=== PATIENT | male | born 1970 | race Hispanic/Latino ===

== ENCOUNTER 2018-12-13 07:38 | Day surgery (SDC) | payer BC ==
[2018-12-13] MEDS ORDERED: NACL 0.9% 1000 ML 1,000 ML IV SCH (09:00)
--- NOTE | 2018-12-13 09:07 | Anesthesia Day of Surgery ---
Anesthesia Day of Surgery - Day of Surgery Patient Examined: Yes Patient H&P Reviewed: Yes Patient is NPO: Yes
--- NOTE | 2018-12-13 09:07 | Anesthesia Consultation ---
Anesthesia Consult and Med Hx Date of service: 12/13/18 - Airway Anesthetic Teeth Evaluation: Good ROM Head & Neck: Adequate Mental/Hyoid Distance: Inadequate Intubation Access Assessment: Probably Good - Pre-Operative Health Status ASA Pre-Surgery Classification: ASA2 Proposed Anesthetic Plan: MAC - Pulmonary Hx Smoking: Yes (tobaco) Hx Sleep Apnea: Yes - Cardiovascular System Hx Hypertension: Yes Hx Cardia Arrhythmia: No - Central Nervous System Hx Neuromuscular Disorder: No - Endocrine Hx Renal Disease: No - Other Systems Hx Alcohol Use: No Hx Substance Use: No
[2018-12-13] MEDS ORDERED: DIPRIVAN 10 MG/ML IV ONE ×3 (09:15)
[2018-12-13] MEDS ORDERED: SUBLIMAZE ONE (09:25)
--- NOTE | 2018-12-13 10:08 | Short Stay Summary ---
Short Stay Documentation Date of service: 12/13/18 Narrative H&P: The patient present for EGD due to chronic GERD and exclusion of Sargent;s and for screening colonoscopy due to FH of colon cancer. No prior colonoscopy. - History Past Medical History: GERD, hypertension Past Surgical History: No surgical history - Allergies and Medications Current Medications: Allergies No Known Allergies Allergy (Verified 12/13/18 08:53) Home Medications Medication Instructions Recorded Confirmed Last Taken Type Metoprolol 50 mg PO DAILY 12/13/18 12/13/18 12/12/18 History Prilosec 1 tab PO DAILY 12/13/18 12/13/18 12/11/18 History Active Medications Sodium Chloride (Nacl 0.9% 1000 Ml) 1,000 mls @ 50 mls/hr IV DIRECT DUGLAS Last Admin: 12/13/18 09:28 Dose: 50 mls/hr Documented by: - Physical exam General appearance: no acute distress, well-nourished Integumentary: no rash, no growths, no abnormal pigmentation HEENT: Atraumatic, PERRLA, EOMI, Mucous membr. moist/pink Lungs: Clear to auscultation, Normal air movement Breasts: deferred Heart: Regular rate, Normal S1, Normal S2, No murmurs, Murmur, Gallops Gastrointestinal: normal, normoactive bowel sounds, hypoactive bowel sounds, no tenderness, no distended, no masses, no guarding, no organomegaly, no hepatomegaly, no splenomegaly, no obese Male Genitourinary: deferred Rectal Exam: normal exam-external/orifice, no mass Extremities: no ischemia, pulses intact, pulses symmetrical, No edema, normal temperature, normal color, Full ROM Neurological: Normal gait, Normal speech, Strength at 5/5 X4 ext, Normal tone, Sensation intact, Cranial nerves 3-12 NL - Brief post op/procedure progress note Date of procedure: 12/13/18 Procedure: see dictated reports Findings: see dictated reports. Estimated blood loss: none Pathology: list (biopsies of gastric body polyp and distal esophagus) Specimen disposition: to lab Condition: stable - Disposition Condition at discharge: Good Disposition: DC- TO HOME OR SELFCARE - Discharge Diagnoses (1) GERD (gastroesophageal reflux disease) Status: Acute (2) Family history of colon cancer Status: Acute Short Stay Discharge Plan Activity: other (No driving for 24 hours) Weight Bearing Status: Full Weight Bearing Diet: regular Follow up with: VIPUL ORTEGA MD [Primary Care Provider] - 7 Days
--- NOTE | 2018-12-13 10:13 | Operative Report ---
Operative Report Operative Report: Date of procedure: 12/13/2018 Procedure: Esophagogastroduodenoscopy with biopsies of the mid gastric polyp. Biopsies of the distal esophagus. Preprocedure diagnosis: GERD, rule out Sargent's Post procedure diagnosis: 1 cm polyp on a stalk in the mid stomach. Distal esophagitis, possibly Sargent's. Endoscopist: Dr. Hernandez Anesthesia: Monitored anesthesia care per anesthesia department Medications: Propofol per anesthesia Estimated blood loss: 0 After careful discussion of the nature and purpose of the procedure as well as details the technique risks benefits and alternatives consent was obtained. The patient was placed in the left lateral decubitus position and medicated per anesthesia. The tip of the Roomster EQ 570 video scope was passed per orum under direct vision into the esophagus and advanced into the stomach and descending duodenum. The descending duodenum the duodenal bulb and pylorus were symmetrical and normal. The scope was withdrawn into the stomach and the stomach then gently insufflated with air. The antrum was normal. The stomach was further insufflated and the scope was then retroflexed and partially withdrawn. The cardia and fundus are normal. It was a 1 cm polyp on a stalk present in the mid stomach body on the greater curvature. Biopsies of the polyp were obtained. The stomach was easily distensible.The scope was then withdrawn in the forward position. The esophagogastric junction was at40 cm. There were 2 tongues of erythema which appeared to be inflammation endoscopically in the distal esophagus both of which are approximately 1 cm in length. Biopsies were taken in the distal esophagus in this area. The esophageal body was otherwise normal throughout. The procedure was was well tolerated and the patient was observed in recovery. Impressions: Distal esophagitis, rule out Sargent's. Mid stomach polyp. Rule out a neoplastic polyp. Plan: Await pathology. 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 Electronically signed: Delon Hernandez MD
--- NOTE | 2018-12-13 10:14 | Operative Report ---
Operative Report Operative Report: Date of procedure: 12/13/2018 Preprocedure diagnosis:, Family history of colon cancer Post procedure diagnosis: Normal study Procedure: Colonoscopy to the cecum Endoscopist: Dr. Hernandez Anesthesia: Monitored anesthesia care per anesthesia department Estimated blood loss: 0 Medications: Monitored anesthesia care. See separate report by anesthesia for details. After careful discussion of the nature and purpose of the procedure as well as details of the technique risks benefits and alternatives the patient gave consent. Please see recent history and physical from the office. The patient was placed in the left lateral decubitus position and medicated per anesthesia. A rectal exam was performed sphincter tone was normal there were no masses palpable. The Vixarn 570 scope was passed transanally and advanced under continuous direct vision without difficulty to the cecum. The colon was well prepared. The cecum was normal. The ascending colon was normal and on forward and retroflexed views. The transverse colon, descending colon, and sigmoid colon were normal. The rectum was normal on forward and retroflexed views. The procedure was well-tolerated overall and the patient was observed in recovery. Conclusions: Normal colonoscopy to the cecum. Plan: Repeat colonoscopy in 5 years. Signed electronically: Delon Hernandez M.D.
[2018-12-13 10:40] VITALS: BP 97/51
--- NOTE | 2018-12-13 11:18 | Post Anesthesia Evaluation ---
- Post Anesthesia Evaluation Patient Participated: Yes Airway Patent: Yes Stable Respiratory Function: Yes Nausea/Vomiting: No Temp > 96.8F: Yes Pain Manageable: Yes Adequeate Hydration: Yes Anesthesia Complications: No Block Receding Appropriately: Not Applicable Patient on Ventilator: No
== END 2018-12-13 07:39 | disposition home or self-care (01) ==
LOC: GIO 07:38
PROVIDERS: ATTEND Internal Medicine Gastroenterology
DX: Z12.11 Encounter for screening for malignant neoplasm of colon (principal); K21.0 Gastro-esophageal reflux disease with esophagitis; K31.7 Polyp of stomach and duodenum; F17.210 Nicotine dependence, cigarettes, uncomplicated; I10 Essential (primary) hypertension; G47.30 Sleep apnea, unspecified; Z98.890 Other specified postprocedural states; Z80.0 Family history of malignant neoplasm of digestive organs
CPT/HCPCS: 43239; 45378; 88305; 88342; J2704; J3010; J7030

== ENCOUNTER 2020-05-16 07:07 | Day surgery (SDC) | payer BC ==
[~2020-05-16 07:07] MED LIST: ceFAZolin/Water 2 GM/20 ML 2 GM/20 ML SYRINGE IV NR
[2020-05-16] MEDS ORDERED: LACTATED RINGERS 1,000 ML ONE (07:41)
[2020-05-16] MEDS ORDERED: MIDAZOLAM 5 MG/5 ML INJ MDV IV SCH (07:50)
[2020-05-16] MEDS ORDERED: BUPIVACAINE/PF (0.25%) 2.5 MG/ML 30 ML VIAL INFILTRATI ONE (08:22)
[2020-05-16] MEDS ORDERED: LIDOCAINE (1%) 10 MG/1 ML VIAL 20 ML MDV ONE (08:22)
[2020-05-16] MEDS ORDERED: HYDROmorphone 1 MG/1 ML INJ ONE (08:42)
[2020-05-16] MEDS ORDERED: propofoL 200 MG/20 ML VIAL IV ONE (08:42)
[2020-05-16] MEDS ORDERED: ACETAMINOPHEN 500 MG TAB PO ONE (08:45)
[2020-05-16] MEDS ORDERED: HYDROmorphone 1 MG/1 ML INJ IV PRN ×2 (08:45)
[2020-05-16] MEDS ORDERED: MAGNESIUM OXIDE 400 MG TAB PO ONE (08:45)
[2020-05-16] MEDS ORDERED: ONDANSETRON 4 MG/2 ML INJ IV PRN (08:45)
[2020-05-16] MEDS ORDERED: BUPIVACAINE/PF (0.5%) 5 MG/1 ML 30 ML VIAL INFILTRATI ONE (08:46)
--- NOTE | 2020-05-16 08:46 | Anesthesia Day of Surgery ---
Anesthesia Day of Surgery - Day of Surgery Patient Examined: Yes Patient H&P Reviewed: Yes Patient is NPO: Yes Beta Blockers: Yes
[2020-05-16] MEDS ORDERED: ACETAMINOPHEN 500 MG TAB ONE (08:47)
--- NOTE | 2020-05-16 08:47 | Anesthesia Consultation ---
Anesthesia Consult and Med Hx Date of service: 05/16/20 - Airway Anesthetic Teeth Evaluation: Good ROM Head & Neck: Adequate Mental/Hyoid Distance: Adequate Mallampati Class: Class III Intubation Access Assessment: Probably Good - Pre-Operative Health Status ASA Pre-Surgery Classification: ASA3 Proposed Anesthetic Plan: General Nerve Block: TAP - Pulmonary Hx Sleep Apnea: Yes (+2FS) - Cardiovascular System Hx Hypertension: Yes ([id number]) Hx Cardia Arrhythmia: No - Central Nervous System Hx Neuromuscular Disorder: No Hx Psychiatric Problems: Yes - Gastrointestinal Hx Gastroesophageal Reflux Disease: Yes - Endocrine Hx Renal Disease: No - Other Systems Hx Alcohol Use: Yes Hx Substance Use: No Hx Cancer: No Hx Obesity: Yes - Additional Comments Anesthesia Medical History Comments: COVID NEGATIVE
[2020-05-16] MEDS ORDERED: fentaNYL 100 MCG/2 ML INJ ONE (08:48)
[2020-05-16] MEDS ORDERED: MIDAZOLAM 2 MG/2 ML INJ ONE (08:48)
[2020-05-16] MEDS ORDERED: CELECOXIB 200 MG CAP PO NR (09:00)
[2020-05-16] MEDS ORDERED: LACTATED RINGERS 1,000 ML IV SCH (09:00)
[2020-05-16] MEDS ORDERED: ROCURONIUM 50 MG/5 ML INJ IV ONE (09:23)
[2020-05-16] MEDS ORDERED: SODIUM CHLORIDE 0.9% IRR 1,500 ML BOTTLE IR ONE (10:14)
[2020-05-16] MEDS ORDERED: GLYCOPYRROLATE 0.4 MG/2 ML INJ ONE (10:16)
[2020-05-16] MEDS ORDERED: NEOSTIGMINE 10MG/10 ML INJ MDV ONE (10:16)
[2020-05-16] MEDS ORDERED: LIDOCAINE MPF (2%) 20 MG/1 ML VIAL 5 ML ONE (10:16)
[2020-05-16] MEDS ORDERED: ONDANSETRON 4 MG/2 ML INJ ONE (10:16)
--- NOTE | 2020-05-16 10:35 | Short Stay Summary ---
Short Stay Documentation Date of service: 05/16/20 - History Principal diagnosis: incarcerated umbilical hernia H&P: obtained from office - Allergies and Medications Current Medications: Allergies No Known Allergies Allergy (Verified 05/08/20 10:42) Home Medications Medication Instructions Recorded Confirmed Last Taken Type Metoprolol 50 mg PO DAILY 12/13/18 05/16/20 05/16/20 05:00 History Prilosec 1 tab PO DAILY 12/13/18 05/16/20 05/16/20 05:00 History Active Medications Hydromorphone HCl (Dilaudid) 0.25 mg IV Q10MIN PRN PRN Reason: Pain, Moderate (4-6) Hydromorphone HCl (Dilaudid) 0.5 mg IV Q10MIN PRN PRN Reason: Pain , Severe (7-10) Cefazolin Sodium (Ancef/Sterile Water 2 Gm/20 Ml) 2 gm in 20 mls @ 80 mls/hr IV PREOP NR Stop: 05/16/20 21:00 Lactated Ringer's (Lactated Ringers) 1,000 mls @ 125 mls/hr IV DIRECT DUGLAS Last Admin: 05/16/20 08:10 Dose: 125 mls/hr Documented by: Midazolam HCl (Versed) 2 mg IV PREOP DUGLAS Stop: 05/16/20 23:00 Ondansetron HCl (Zofran) 4 mg IV ONCE PRN PRN Reason: Nausea And Vomiting - Brief post op/procedure progress note Date of procedure: 05/16/20 Pre-op diagnosis: incarcerated umbilical hernia Post-op diagnosis: same Procedure: open umbilical hernia repair with mesh Anesthesia: GETA, other (block) Findings: <1cm fascial defect containing incarcerated preperitoneal fat. Surgeon: LAURO FANG Estimated blood loss: minimal Pathology: none Specimen disposition: to lab Condition: stable - Hospital course Hospital course: Pt observed in PACU and discharged to home in stable condition when criteria met - Disposition Condition at discharge: Good Disposition: DC-01 TO HOME OR SELFCARE Short Stay Discharge Plan Activity: other (no heavy lifting) Diet: regular Wound: per your surgeon's advice Additional Instructions: SEE PRINTED DISCHARGE INSTRUCTIONS Follow up with: PRIMARY CARE,MD [Primary Care Provider] - 7 Days LAURO FANG DO [Staff Physician] - 14 Days Prescriptions: Ibuprofen [Motrin 800 MG tab] 800 mg PO Q8HR #30 tablet HYDROcodone/APAP 10-325 [[place] 10/325] 1 each PO Q6HR PRN #15 tablet PRN Reason: Pain , Severe (7-10)
--- NOTE | 2020-05-16 10:46 | Progress Note ---
Regional Anesthesia Block - Regional Anesthesia Block Performed By:: MITCHELL GUIDO Procedure: Marcello Tap Block with Ultrasound Pt Id, consent, time out; performed. Pt on monitor, VSS stable, sedation given per pre-op RN. Sterile prep and drape. Left side Landmarks Identified with ultrasound. 3cc 1% lido skin wheel. Needle advance in plane, 15cc .25% bupivacaine with 15 m ns injected intimately with negatives aspiration. Right side Landmarks Identified with ultrasound. 3cc 1% lido skin wheel. Needle advance in plane, 15cc .25% bupivacaine with 15 m ns injected intimately with negatives aspiration Pt tolerated procedure will, VSS stable. Right side Landmarks Identified with ultrasound. 3cc 1% lido skin wheel. Needle advance in plane, 15cc .25% bupivacaine injected intimately with negatives aspiration. Pt tolerated procedure will, VSS stable.
[2020-05-16] MEDS ORDERED: HYDROcodone/ACETAMINOPHEN 10-325MG TAB PO PRN ×2 (10:57→11:00)
[2020-05-16] MEDS ORDERED: fentaNYL 250 MCG/5 ML INJ IV SCH (11:00)
[2020-05-16 11:47] VITALS: BP 113/74
--- NOTE | 2020-05-16 12:44 | Post Anesthesia Evaluation ---
- Post Anesthesia Evaluation Patient Participated: Yes Airway Patent: Yes Stable Respiratory Function: Yes Nausea/Vomiting: No Temp > 96.8F: Yes Pain Manageable: Yes Adequeate Hydration: Yes Anesthesia Complications: No Block Receding Appropriately: Yes Patient on Ventilator: No
--- NOTE | 2020-05-17 10:55 | Operative Report ---
Operative Report Operative Report: Date of procedure: 05/16/20 Pre-op diagnosis: incarcerated umbilical hernia Post-op diagnosis: same Procedure: open umbilical hernia repair with mesh Anesthesia: GETA, other (block) Findings: <1cm fascial defect containing incarcerated preperitoneal fat. Surgeon: LAURO FANG Estimated blood loss: minimal Pathology: none Specimen disposition: to lab Condition: stable - Hospital course Hospital course: Pt observed in PACU and discharged to home in stable condition when criteria met HPI indication: Patient is a 50-year-old male who presented to the surgery clinic with an umbilical hernia. The patient was having more discomfort in the area and elected to have this fixed. All risk, benefits, alternatives to surgery discussed with patient questions answered. Consent was obtained. Procedure in detail: Patient was identified in the preoperative area, taken back to the operating room and placed on the operating room table in supine position. After anesthesia was induced the abdomen was prepped and draped in usual sterile fashion timeout performed. The patient had already received a regional block by anesthesia. An inverted semilunar incision was made at the superior aspect of the umbilicus using a 15 blade. Dissection was carried down through skin and subcutaneous tissue using Bovie electrocautery until the hernia was encountered. The hernia sac and its contents were circumferentially dissected free from the surrounding tissue using a hemostat and electrocautery. The fascia was identified and freed of overlying tissue circumferentially. The fascial defect was less than 1 cm containing greater than 3 cm of preperitoneal fat which was incarcerated in the hernia. The fascial defect was very slightly enlarged and the preperitoneal fat was able to be reduced. The preperitoneal space was bluntly dissected in order to make space for insertion of mesh. Once enough space was created a [address] mesh was inserted into the space and was ensured to be expanded completely and laying flat. This was sutured in place using 2-0 Prolene suture in 2 locations. The tabs were cut flush with the fascia. The subcutaneous tissue was irrigated and hemostasis was carefully ensured. The lumbar umbilicus was tacked down to the fascia using a 3-0 Vicryl interrupted stitch. The deep dermal layer was closed using 3-0 Vicryl interrupted sutures. The skin was approximated using 4-0 Monocryl subcuticular running stitch and skin glue. After the glue was dry a 4 x 4 fluff gauze was placed in the umbilicus and secured with a Tegaderm. At the end of the case, all sponge, instrument, sharp counts were correct x2. The patient was awoken from anesthesia extubated and taken to PACU in stable condition.
== END 2020-05-16 07:08 | disposition home or self-care (01) ==
LOC: OR 07:07
PROVIDERS: ATTEND Surgery
DX: K42.0 Umbilical hernia with obstruction, without gangrene (principal); Z20.828 Contact with and (suspected) exposure to other viral communicable diseases; K21.9 Gastro-esophageal reflux disease without esophagitis; I10 Essential (primary) hypertension; G47.30 Sleep apnea, unspecified; E66.9 Obesity, unspecified; F41.9 Anxiety disorder, unspecified; Z98.890 Other specified postprocedural states; Z80.8 Family history of malignant neoplasm of other organs or systems; Z79.899 Other long term (current) drug therapy; Z80.0 Family history of malignant neoplasm of digestive organs; Z72.89 Other problems related to lifestyle
CPT/HCPCS: 49587; C1781; J0690; J1170; J2250; J2405; J2704; J2710; J3010; J7120; U0003; 64450